=== PATIENT | female | born 1990 | race African-American/Black ===

== ENCOUNTER 2022-11-27 08:38 | Emergency (ER) | payer MEDICAID ==
[~2022-11-27] VITALS: Ht 165.1 cm; Wt 82.0 kg
[2022-11-27 08:46] VITALS: O2SAT 96
[2022-11-27] MEDS ORDERED: AZIT250T12 MT (11:35)
[2022-11-27] MEDS ORDERED: DEXTL PO (11:35)
[2022-11-27] MEDS ORDERED: ALBU18HF2 IH (11:35)
[2022-11-27] MEDS ORDERED: AMOX1TAB16 MT (11:38)
[2022-11-27 11:54] VITALS: BP 132/78; PULSE 68; RESP 16; TEMP 97.5
== END 2022-11-27 11:57 | disposition home or self-care (01) ==
LOC: ER 08:38
DX: J18.9 Pneumonia, unspecified organism (principal); Z20.822 Contact with and (suspected) exposure to COVID-19
CPT/HCPCS: 99284; 71045; 87426; 81025; 87804 ×2; C9803